=== PATIENT | female | born 1950 | race Caucasian/White ===

== ENCOUNTER 2019-04-30 13:30 | Day surgery (SDC) | payer MEDICARE ==
[2019-04-23 15:52] LABS: BASOPHILS # (AUTO) 0.1 X10'3 (0-0.2); BASOPHILS % (AUTO) 1.1 % (0-1); EOSINOPHILS # (AUTO) 0.1 X10'3 (0-0.9); LYMPHOCYTES # (AUTO) 1.4 X10'3 (1.1-4.8); LYMPHOCYTES % (AUTO) 21.2 % (21-51); MEAN CORPUSCULAR HGB CONC 32.3 g/dL (33.0-36.5); MEAN CORPUSCULAR VOLUME 68.1 FL (78-98); MEAN PLATELET VOLUME 8.7 FL (7.4-10.4); MONOCYTES # (AUTO) 0.6 X10'3 (0-0.9); MONOCYTES % (AUTO) 9.8 % (2-12); NEUTROPHILS # (AUTO) 4.4 X10'3 (1.8-7.7); NEUTROPHILS % (AUTO) 66.9 % (42-75); PRE OP HEMATOCRIT 34.4 % (35.0-45.0); PRE OP HEMOGLOBIN 11.1 g/dL (12.0-16.0); PRE OP PLATELET COUNT 207 X10'3 (140-440); RED BLOOD COUNT 5.06 X10'6 (4.20-5.60)
[2019-04-23 15:57] LABS: PRE OP INR 0.9 INR; PRE OP PROTIME 9.7 SECONDS (9.0-12.0)
[2019-04-23 16:01] LABS: ALBUMIN/GLOBULIN RATIO 1.1 (1.1-1.5); ALKALINE PHOSPHATASE 79 IU/L (46-116); BLOOD UREA NITROGEN 27 MG/DL (7-18); BUN/CREATININE RATIO 34.2 (6.6-38.0); CALCIUM 9.4 MG/DL (8.5-10.1); CHLORIDE 107 MMOL/L (99-107); CREATININE 0.79 MG/DL (0.40-0.90); PRE OP ALT 24 U/L (30-65); PRE OP ANION GAP 7 (8-16); PRE OP AST 16 U/L (10-37); PRE OP BILIRUB, TOTAL 0.3 MG/DL (0.0-1.0); PRE OP GLUCOSE 95 MG/DL (70-104); PRE OP POTASSIUM 4.1 MMOL/L (3.4-5.1); PRE OP SODIUM 141 MMOL/L (135-145); TOTAL CARBON DIOXIDE 27.3 MMOL/L (24-32); TOTAL PROTEIN 7.8 G/DL (6.4-8.2); eGFR 72 ML/MIN
[2019-04-23 17:03] LABS: ANISOCYTOSIS 1+; MICROCYTOSIS 2+; PLATELET ESTIMATE NORMAL
[2019-04-23 17:04] LABS: ELLIPTOCYTES FEW; POIKILOCYTOSIS 1+; POLYCHROMASIA 1+
[2019-04-23 17:05] LABS: HYPOCHROMASIA 1+
[2019-04-30] VITALS (21 sets, daily range): BP systolic 90–124; BP diastolic 43–77
[~2019-04-30] VITALS: Ht 158.8 cm; Wt 70.0 kg
[2019-04-30] MEDS: gabapentin 100mg capsule PO SCH ×3 (08:00→23:04)
[2019-04-30] MEDS: FLUoxetine 20mg capsule PO SCH (08:00)
[2019-04-30] MEDS: ringers solution, lacted 1,000 ML IV SCH ×2 (08:24→13:35)
--- NOTE | 2019-04-30 11:46 | NUR ---
Received from OR via , accompanied by Anesthesiologist DR TAMEZ and report given by Anesthesiolgist. AWAKENS TO VOICE. VITALS STABLE. DRESSING DI. MADELEINE PAIN. SENSATION AT MID THIGH.
[2019-04-30] MEDS: ROPIVAcaine 0.2%/PF PUMP/bolus 550 ML ADDCANAL SCH ×2 (13:09→15:28)
--- NOTE | 2019-04-30 13:12 | NUR ---
Report called to receiving nurse. Transferred via BED Belongings . Special Issues communicated to receiving nurse. AWAKE AND ORIENTED. VITALS STABLE. DRESSING DI. STATRTING TO MOVE BILAT FEET. MADELEINE PAIN. TO ORTHO RM 4014A AT THIS TIME.
--- NOTE | 2019-04-30 13:20 | NUR ---
ASSUMED CARE, RECEIVED REPORT FROM MANOJ ADAMES, POST OP VS STARTED, PT REPORTS MILD PAIN, WILL CONTINUE TO MONITOR.
[~2019-04-30 13:30] MED LIST: ALBU8.5H8 INH; CHOL500061 PO; CYAN50003 PO; FLUO20CA39 PO; GABA-530 PO; GREEN TEA SLIM PO; HYDR-3972 PO; HYDROmorphone 1 mg/ml syringe IV PRN; HYDROmorphone inj. 0.5 MG/0.5 ML DISP.SYRIN IV PRN; LANS30CA56 PO; MAGN400C PO; MIDAZolam 1mg/ml 10ml vial ONE; MULT-1085 PO; PROG100C16 PO; RED1000P PO; ROPIVAcaine 0.2% (10 MG/5 ML) BOLUS INJECTION ADDCANAL PRN; ROPIVAcaine 0.5% (5mg/ml) 30ml vial ONE; SUMA50TA PO; SUMAtriptan 25 MG tablet PO PRN; TOPI50TA PO; acetaminophen 325mg tablet PO ONE; acetaminophen 325mg tablet PO PRN; albuterol 2.5 MG/3 ML nebule NEB ONE; albuterol 2.5 MG/3 ML nebule NEB PRN; bisacodyl 10mg suppository rectal RC PRN; cefazolin/dext.iso 2gm/50ml 50 ML IV ONE; celeCOXIB 100mg capsule PO ONE; cloNIDine hcl/PF 100mcg/ml inj ONE; diphenhydrAMINE 25mg capsule PO PRN; epiNEPHrine 1 mg/ml inj ONE; famotidine 20mg tablet PO ONE; fentaNYL/PF 50MCG/1 ML 2ML syringe ONE; gabapentin 300mg capsule PO ONE; ketorolac trometh. 30mg/ml inj. ONE; magnesium hydroxide 30ml (MOM) UD suspension PO PRN; meperidine/PF 25mg/ml syringe IV PRN; metoclopramide 5 mg/ml inj IV ONE; morphine 2 MG/ML inj. syringe IV PRN; morphine 4 MG/ML inj SYRINge IV PRN; ondansetron/PF 4mg/2ml inj IV PRN; oxyCODONE SR 10mg (sust. release) tab -2 tabs (20mg) PO ONE; oxyCODONE/APAP 10/325mg tablet PO PRN; proCHLORperazine 10 MG/2 ml inj IV PRN; ringers solution, lacted 1,000 ML IV SCH; tranexamic acid inj. 1,000 MG in normal saline 100 ML IV ONE; vancomycin 1,000mg inj ONE; vancomycin inj 1,500 MG in normal saline 300ml IV soln IV ONE; vancomycin/NS 1 GM ADD-VANTAGE 250 ML IV SCH
[2019-04-30] MEDS: CLINDAmcin 900mg/NS 50ml IVPB 50 ML IV SCH ×3 (14:17→23:07)
[2019-04-30] MEDS: oxyCODONE/APAP 10/325mg tablet PO PRN ×3 (14:22→23:05)
[2019-04-30] MEDS: topiramate 25mg tablet PO SCH ×2 (14:24→20:56)
[2019-04-30] MEDS: multivitamins, therapeutics tablet PO SCH (14:24)
[2019-04-30] MEDS: ascorbic acid 500mg tablet PO SCH ×2 (14:24→20:50)
[2019-04-30] MEDS: aspirin 325mg tablet PO SCH (14:25)
[2019-04-30] MEDS: progesterone, micronized 100mg capsule PO SCH (14:35)
[2019-04-30] MEDS: potassium cl 20mEq in 1/2 NS 1,000 ML IV SCH ×2 (15:07→16:28)
[2019-04-30] MEDS: pseudoephedrine 30mg tablet PO SCH (16:30)
[2019-04-30] MEDS: fluticasone nasal spray 16GM bottle NS SCH (16:39)
[2019-04-30] MEDS ORDERED: tranexamic acid inj. 1,000 MG in normal saline 100ml IV soln 100 ML IV ONE (17:00)
--- NOTE | 2019-04-30 18:00 | NUR ---
Problems reprioritized. Patient report given, questions answered & plan of care reviewed with WYATT ADAMES.
--- NOTE | 2019-04-30 18:10 | NUR ---
Received patient report from ROSANGELA Ballesteros
[2019-04-30] MEDS: pantoprazole 40mg Tablet.DR PO SCH (20:51)
[2019-04-30] MEDS ORDERED: sennosides 8.6mg tablet PO SCH (21:00)
[2019-04-30] MEDS ORDERED: FLUoxetine 20mg capsule PO SCH (21:00)
[2019-05-01 02:00] VITALS: BP 96/40
[2019-05-01] MEDS: potassium cl 20mEq in 1/2 NS 1,000 ML IV SCH ×2 (02:31→07:07)
[2019-05-01] MEDS: oxyCODONE/APAP 10/325mg tablet PO PRN ×3 (03:12→11:42)
[2019-05-01 06:00] VITALS: BP 95/53
--- NOTE | 2019-05-01 06:30 | NUR ---
Patient report given, questions answered and plan of care reviewed with ROSANGELA Falcon.
--- NOTE | 2019-05-01 06:40 | NUR ---
Patient in room ORTHO 4014. I have received report from Citlalli ADAMES and had the opportunity to ask questions and assume patient care.
--- NOTE | 2019-05-01 06:40 | NUR ---
Patient in room ORTHO 4014. I have received report from Citlalli ADAMES and had the opportunity to ask questions and assume patient care.
[2019-05-01] MEDS: multivitamins, therapeutics tablet PO SCH (07:16)
[2019-05-01] MEDS: FLUoxetine 20mg capsule PO SCH (07:16)
[2019-05-01] MEDS: topiramate 25mg tablet PO SCH (07:16)
[2019-05-01] MEDS: pantoprazole 40mg Tablet.DR PO SCH (07:16)
[2019-05-01] MEDS: ascorbic acid 500mg tablet PO SCH (07:17)
[2019-05-01] MEDS: pseudoephedrine 30mg tablet PO SCH (07:17)
[2019-05-01] MEDS: gabapentin 100mg capsule PO SCH (07:17)
[2019-05-01] MEDS: fluticasone nasal spray 16GM bottle NS SCH (07:18)
[2019-05-01] MEDS: progesterone, micronized 100mg capsule PO SCH (07:19)
[2019-05-01 07:41] LABS: BASOPHILS % (AUTO) 0.4 % (0-1); EOSINOPHILS % (AUTO) 0.5 % (0-6); HEMOGLOBIN 8.8 g/dl (12.0-16.0); LYMPHOCYTES # (AUTO) 1.2 X10'3 (1.1-4.8); LYMPHOCYTES % (AUTO) 13.7 % (21-51); MEAN CORPUSCULAR HGB CONC 32.5 g/dL (33.0-36.5); MEAN CORPUSCULAR VOLUME 67.9 FL (78-98); MEAN PLATELET VOLUME 8.7 FL (7.4-10.4); MONOCYTES # (AUTO) 0.8 X10'3 (0-0.9); MONOCYTES % (AUTO) 9.3 % (2-12); NEUTROPHILS # (AUTO) 6.5 X10'3 (1.8-7.7); NEUTROPHILS % (AUTO) 76.1 % (42-75); PLATELET COUNT 149 X10'3 (140-440); RED BLOOD COUNT 3.98 X10'6 (4.20-5.60); RED CELL DISTRIBUTION WIDTH 15.3 % (11.5-14.5); WHITE BLOOD COUNT 8.5 X10'3 (4.5-11.0)
[2019-05-01 07:57] LABS: ANION GAP 7 (8-16); CHLORIDE 107 MMOL/L (99-107); POTASSIUM 4.4 MMOL/L (3.5-5.1); SODIUM 140 MMOL/L (135-145); TOTAL CARBON DIOXIDE 26.2 MMOL/L (24-32)
[2019-05-01] MEDS: aspirin 325mg tablet PO SCH (09:04)
[2019-05-01 10:00] VITALS: BP 93/53
[2019-05-01] MEDS ORDERED: ASPI-1 PO (10:15)
--- NOTE | 2019-05-01 11:45 | NUR ---
Pt discharged home with . Pt wheeled down in a wheelchair and assisted into the car. All personal belongings with patient.
[2019-05-01] MEDS ORDERED: celeCOXIB 100mg capsule PO SCH (20:00)
== END 2019-05-01 11:45 | disposition home or self-care (01) ==
LOC: PAS 13:30 → ORTHO 4S 13:30 → UNDOADMOB 13:30 → ORTHO 4S 13:30 → PAS 05-01 11:45 → ORTHO 4S 05-01 11:45
PROVIDERS: ATTEND Orthopaedic Surgery
DX: M17.11 Unilateral primary osteoarthritis, right knee (principal); D64.9 Anemia, unspecified; F32.9 Major depressive disorder, single episode, unspecified; J45.909 Unspecified asthma, uncomplicated; G43.909 Migraine, unspecified, not intractable, without status migrainosus; G89.18 Other acute postprocedural pain; D56.9 Thalassemia, unspecified; K21.9 Gastro-esophageal reflux disease without esophagitis; Z79.01 Long term (current) use of anticoagulants; Z79.899 Other long term (current) drug therapy; Z87.891 Personal history of nicotine dependence; Z72.89 Other problems related to lifestyle; Z98.890 Other specified postprocedural states
CPT/HCPCS: 27447; 36415; 64448; 71046; 73560; 80051; 80053; 82948; 85025; 85610; 85730; 86885; 86900; 86901; 87081; 94640; 94760; 97110; 97116; 97530; A6454; C1713; C1776; J0171; J0735; J1885; J2250; J2765; J2795; J3010; J3370; J7120; 97161; A4215; A7000; G0378; J3480; J3490